=== PATIENT | male | born 1960 | race Caucasian/White ===

== ENCOUNTER 2018-01-11 04:40 | Emergency (ER) | payer SELFPAY ==
[~2018-01-11] VITALS: Ht 167.6 cm; Wt 65.8 kg
--- NOTE | 2018-01-11 04:40 | NUR ---
PT GUY ALS. TAKEN TO BED 1
[2018-01-11 04:45] VITALS: BP 179/74
--- NOTE | 2018-01-11 04:45 | NUR ---
57/M BIB [facility], C/O 09/18 CONSTANT SHARP R TESTICULAR AND R GROIN PAIN, X10 DAYS, WORSENING TODAY. R TESTICULAR AND R GROIN TENDERNESS NOTED. PT DENIES FEVER, N/V OR DYSURIA. PT REPORTS TAKING PCN WITHOUT RX BRIEFLY AND ADVIL WITHOUT RELIEF. DENIES MED HX.
--- NOTE | 2018-01-11 04:47 | NUR ---
Caitlin frost in ED - 01/11/18 at 0447 by DEMETRIO PT GUY EUGENE. TAKEN TO BED 1
--- NOTE | 2018-01-11 04:47 | NUR ---
Dr. Keenan evaluating patient at bedside.
[2018-01-11] MEDS ORDERED: KETOROLAC 30 MG/ML VIAL IM ONE (04:55)
[2018-01-11 05:23] LABS: APPEARANCE,URINE CLEAR (CLEAR); BILIRUBIN,URINE NEGATIVE (NEGATIVE); BLOOD, URINE SMALL (NEGATIVE); COLOR,URINE YELLOW (YELLOW); LEUKOCYTE ESTERASE ,URINE NEGATIVE (NEGATIVE); NITRITE, URINE NEGATIVE (NEGATIVE); PH,URINE 5.5 (5.0-9.0); RBC,URINE 0-5 (RARE) /HPF (0-5); UGLUCOSE NEGATIVE (NEGATIVE); WBC,URINE 0-5 (RARE) /HPF (0-5)
--- NOTE | 2018-01-11 05:34 | NUR ---
Ultrasound at bedside.
[2018-01-11] MEDS ORDERED: MORPHINE SULFATE 4 MG/ML SYR IM ONE (05:35)
--- NOTE | 2018-01-11 05:36 | NUR ---
PT C/O PERSISTENT 8/10 L TESTICULAR PAIN DESPITE TORADOL IM. ER MD MADE AWARE. ADMINISTERED MORPHINE 4MG IM ORDERED. US TECH AT BEDSIDE AT THIS TIME.
--- NOTE | 2018-01-11 05:36 | NUR ---
PRESENT MALE CHAPERRONE FOR US
[2018-01-11] MEDS ORDERED: ONDANSETRON 4 MG/2 ML VIAL IVP ONE (05:55)
[2018-01-11] MEDS ORDERED: MORPHINE SULFATE 4 MG/ML SYR IVP ONE (05:55)
[2018-01-11] MEDS ORDERED: KETOROLAC 30 MG/ML VIAL IVP ONE (06:45)
--- NOTE | 2018-01-11 07:02 | NUR ---
PT STATED THAT THERE IS NO FAMILY/FRIEND TO CALL FOR TRANSPORT, PT REFUSED TO HAVE [facility] CALLED FOR HIM. PT STATED HE WILL BE WALKING.
[2018-01-11 07:03] VITALS: BP 130/84
--- NOTE | 2018-01-11 07:03 | NUR ---
Patient discharged with v/s stable. Written and verbal after care instructions given and explained. Patient alert, oriented and verbalized understanding of instructions. Ambulatory with steady gait. All questions addressed prior to discharge. ID band removed. Patient advised to follow up with PMD. Rx of NAPROSYN, LEVAQUIN, NORCO given. Patient educated on indication of medication including possible reaction and side effects. Opportunity to ask questions provided and answered.
[2018-01-13 06:34] LABS: CHLAMYDIA TRACHOMATIS AMP DNA Negative (Negative)
== END 2018-01-11 07:03 | disposition home or self-care (01) ==
LOC: MED 04:40
DX: N45.2 Orchitis (principal)
CPT/HCPCS: 36415; 76870; 81001; 87491; 96372; 96374; 96375; 99284; J1885; J2270; J2405